=== PATIENT | male | born 1990 | race Two or more races ===

== ENCOUNTER 2020-02-12 18:09 | Emergency (ER) | payer SELFPAY ==
[~2020-02-12] VITALS: Ht 175.3 cm; Wt 91.0 kg
[2020-02-12 18:30] VITALS: BP 117/71
[2020-02-12] MEDS ORDERED: HYDROcodone/APAP 7.5/325MG 1 TAB TABLET PO ONE (18:30)
[2020-02-12] MEDS ORDERED: HYDR-3164 PO (19:18)
[2020-02-12] MEDS ORDERED: CEPH500C PO (19:18)
--- NOTE | 2020-02-12 19:18 | PHYS DOC ---
Past Medical History Past Medical History: Other Additional Past Medical Histor: L femur fx w/ surgery Past Surgical History: Other Additional Past Surgical Histo: L femur fx surger, hernia repair Smoking Status: Never Smoker Alcohol Use: Occasionally General Adult EDM: Chief Complaint: FINGER INJURY HPI: HPI: Patient is a 29 year old male who presents with complaint of injury to his right thumb this afternoon. Patient states that he had his hand on a door jam and another person did not see the location of his hand and close the door, c rushing patient's thumb. Patient reports that thumbnail was avulsed off. He denies any other injuries. He rates pain at an 8 out of 10. [] Review of Systems: Review of Systems: Constitutional: Denies fever or chills. [] Respiratory: Denies cough or shortness of breath. [] Cardiovascular: Denies chest pain or edema. [] Musculoskeletal: Positive right thumb injury and pain. [] Integument: Denies rash. [] Neurologic: Denies headache, focal weakness or sensory changes. [] Heart Score: Risk Factors: Risk Factors: DM, Current or recent (<one month) smoker, HTN, HLP, family history of CAD, obesity. Risk Scores: Score 0 - 3: 2.5% MACE over next 6 weeks - Discharge Home Score 4 - 6: 20.3% MACE over next 6 weeks - Admit for Clinical Observation Score 7 - 10: 72.7% MACE over next 6 weeks - Early Invasive Strategies Current Medications: Current Medications Medications (Trade) Dose Ordered Sig/[facility] Start Time Stop Time Status Last Admin Dose Admin Acetaminophen/ Hydrocodone Bitart (Lortab 7.5/325) 1 tab 1X ONCE 02/12/20 18:30 02/12/20 18:31 DC 02/12/20 18:30 1 TAB Allergies: Allergies: Allergies Coded Allergies Type Severity Reaction Last Updated Verified No Known Drug Allergies 02/12/20 No Physical Exam: PE: Constitutional: Well developed, well nourished, no acute distress, non-toxic appearance. [] Cardiovascular: Regular rate and rhythm [] Lungs & Thorax: Bilateral breath sounds clear to auscultation [] Skin: Warm, dry, no erythema, no rash. [] Extremities: Exam of right thumb demonstrates evulsed nail. No obvious laceration is noted. [] Neurologic: Alert and oriented X 3, no focal deficits noted. [] Current Patient Data: Vital Signs: Vital Signs Date Time Temp Pulse Resp B/P (MAP) Pulse Ox O2 Delivery O2 Flow Rate FiO2 02/12/20 18:30 99.0 91 12 117/71 (86) 100 Room Air 99.0 EKG: EKG: [] Radiology/Procedures: Radiology/Procedures: [] Course & Med Decision Making: Course & Med Decision Making Pertinent Labs and Imaging studies reviewed. (See chart for details) [] Dragon Disclaimer: Dragon Disclaimer: This electronic medical record was generated, in whole or in part, using a voice recognition dictation system. 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 DO 02/12/20 Hydrocodone/Apap 5-325 (NORCO 5-325 TABLET) 1 Each Tablet 1-2 EACH PO PRN Q6HRS PRN for PAIN, #15 as needed for pain Prov: DAVIDA MCKENZIE Jr. DO 02/12/20 DAVIDA MCKENZIE Jr. DO February 12, 2020 19:18
--- NOTE | 2020-02-12 19:22 | RAD ---
Right thumb x-rays 3 views HISTORY: Injury to thumb. FINDINGS: There is acute traumatic distracted transverse fracture of the thumb distal phalangeal time may be overlying soft tissue laceration. No dislocation. IMPRESSION: Acute traumatic fracture of the thumb distal phalangeal tuft and soft tissue laceration as described above. Electronically signed by: Ned Escobar MD (02/12/2020 7:19 PM) HEL[facility]
== END 2020-02-12 19:47 | disposition home or self-care (01) ==
LOC: ER 18:09
DX: S60.111A Contusion of right thumb with damage to nail, initial encounter (principal); Z98.890 Other specified postprocedural states; W23.0XXA Caught, crushed, jammed, or pinched between moving objects, initial encounter; Y93.89 Activity, other specified; Y92.89 Other specified places as the place of occurrence of the external cause; Y99.8 Other external cause status
CPT/HCPCS: 11730; 73140; 99283; 99284